=== PATIENT | female | born 1970 | race Caucasian/White ===

== ENCOUNTER → 2018-06-13 | Outpatient (CLI) | payer BC ==
[~2018-06-13] MED LIST: DEXILANT60 MG PO; LEVOTHYROXINE PO; LEXAPRO 10 MG T10 MG PO; MOTION RELIEF25 MG PO; NIFEDICAL XL30 MG PO; [UNRECOGNIZED DRUG - REMARK]
== END ==
LOC: M.RAD 05-04 09:00
DX: R13.10 Dysphagia, unspecified (principal); M34.1 CR(E)ST syndrome